=== PATIENT | male | born 1995 | race Hispanic/Latino ===

== ENCOUNTER 2023-01-24 18:03 | Emergency (ER) | payer SELFPAY ==
[2023-01-24] MEDS ORDERED: NAPROXEN500 MG PO (19:51)
[2023-01-24 19:56] VITALS: BP 117/70
== END 2023-01-24 22:14 | disposition home or self-care (01) | DRG 605 ==
LOC: ED 18:03
PROC: 2W3AXYZ Immobilization of Right Upper Arm using Other Device (ICD-10-PCS; principal; 2023-01-24)
DX: S40.011A Contusion of right shoulder, initial encounter (principal); W19.XXXA Unspecified fall, initial encounter; S43.102A Unspecified dislocation of left acromioclavicular joint, initial encounter